=== PATIENT | female | born 1950 | race Caucasian/White ===

== ENCOUNTER 2020-08-01 15:25 | Inpatient (IN) ==
[2020-08-01] MEDS ORDERED: SODIUM CHLORIDE 0.9% 500 ML IV STA (18:58)
[2020-08-01 20:03] LABS: Basophils % 0.6 % (0.0-0.8); Eosinophils % 0.2 % (0.00-10.9); Hematocrit 47.7 VOL% (35.7-47.0); Hemoglobin 15.7 GM/DL (12.0-16.0); Immature Granulocytes % 0.5 %; Immature Granulocytes Absolute 0.03 #; Lymphocytes # 2.3 10*3/uL (1.4-4.0); Lymphocytes % 35.2 % (21.3-54.2); Mean Corpuscular HGB Conc 32.9 GM/DL (32-36); Mean Corpuscular Volume 87.5 FL (87-102); Mean Platelet Volume 10.3 FL (9.6-12.0); Monocytes % 10.4 % (1.7-12.7); Neutrophils % 53.1 % (38.7-73.9); Platelet Count 171 T/CUMM (130-400); Red Blood Count 5.45 MC/CUMM (3.8-5.5); Red Cell Distribution Width 13.3 % (9.3-17.3); White Blood Count 6.6 T/CUMM (4-12)
[2020-08-01 20:34] LABS: Band Neutrophils 4 % (0-10); Hypochromasia Slight; Lymphocytes 31 % (20-55); Microcytosis Slight; Platelet Estimate Normal; Polychromasia Slight; Segmented Neutrophils 57 % (50-85); Total Cells Counted 100
[2020-08-01 21:02] LABS: Alanine Aminotransferase 1413 U/L (13-56); Albumin 2.8 G/DL (3.4-5.0); Alkaline Phosphatase 254 U/L (45-117); Aspartate Amino Transferase 2313 U/L (0-37); Blood Urea Nitrogen 17 MG/DL (7-18); Calcium 8.6 MG/DL (8.5-10.1); Carbon Dioxide 28 MMOL/L (21-32); Estimated Glom Filtration Rate 85 ML/MIN; Glucose 137 MG/DL (74-106); Osmolality,Calculated 267.5 MOS/KG (273-304); Potassium 3.6 MMOL/L (3.5-5.1); Sodium 132 MMOL/L (136-145); Thyroid Stimulating Hormone 0.375 uIU/ml (0.358-3.74); Total Protein 7.2 G/DL (6.4-8.2)
[2020-08-01 21:35] LABS: Bilirubin,Urine Negative (Negative); Blood, Urine Negative (Negative); Glucose,Urine (UA) Negative (Negative); Ketones,Urine 20 mg/dL (Negative); Mucus,Urine Many /LPF (Occasional); Nitrite,Urine Negative (Negative); Protein,Urine 30 MG/DL; RBC,Urine 2 /HPF (0-4); Squamous Epithelial Cell,Urine Occasional /HPF (0-10); Urine Appearance CLEAR (Clear); Urine Color Amber (Yellow)
[2020-08-01 21:58] LABS: Barbiturates Screen,Urine Negative (Negative); Benzodiazepines Screen,Urine Negative (Negative); Cannabinoid Screen,Urine Negative (Negative); Opiate Screen,Urine Negative (Negative); Phencyclidine Screen,Urine Negative (Negative)
[2020-08-01 22:14] LABS: Hepatitis B Core IgM Quant 0.05 Index; Hepatitis B Surface Ag Quant < 0.10 Index; Hepatitis B Surface Ag Result Non-Reactive (NonReactive); Hepatitis C Virus Ab Quant 0.08 Index; Hepatitis C Virus Ab Result Non-Reactive (NonReactive)
[2020-08-01] MEDS ORDERED: DEXTROSE 50% 25 GM/50 ML VIAL IV PRN ×2 (22:54→22:59)
[2020-08-01] MEDS ORDERED: GLUCAGON 1 MG VIAL IM PRN ×2 (22:54→22:59)
[2020-08-01] MEDS ORDERED: diphenhydrAMINE CAP 25 MG CAPSULE PO PRN (22:59)
[2020-08-01] MEDS ORDERED: ZALEPLON 5 MG CAPSULE PO PRN (22:59)
[2020-08-01] MEDS ORDERED: NICOTINE 21 MG/24 HR PATCH TRANSDERM PRN (22:59)
[2020-08-01] MEDS ORDERED: hydrALAZINE 20 MG/1 ML VIAL IV PRN (22:59)
[2020-08-01] MEDS ORDERED: MORPHINE 4 MG/1 ML VIAL IV PRN (22:59)
[2020-08-02] MEDS: SODIUM CHLORIDE 0.9% 1,000 ML IV SCH ×3 (00:22→17:02)
[2020-08-02] MEDS: ALBUTEROL/IPRATROPIUM 3 ML NEB RESP TX SCH ×5 (00:38→20:54)
[2020-08-02 05:08] LABS: Basophils % 0.7 % (0.0-0.8); Eosinophils % 0.4 % (0.00-10.9); Hematocrit 42.2 VOL% (35.7-47.0); Hemoglobin 14.1 GM/DL (12.0-16.0); Immature Granulocytes % 0.5 %; Immature Granulocytes Absolute 0.03 #; Lymphocytes # 1.9 10*3/uL (1.4-4.0); Lymphocytes % 33.9 % (21.3-54.2); Mean Corpuscular HGB Conc 33.4 GM/DL (32-36); Mean Corpuscular Volume 85.9 FL (87-102); Mean Platelet Volume 10.8 FL (9.6-12.0); Monocytes % 12.4 % (1.7-12.7); Neutrophils % 52.1 % (38.7-73.9); Platelet Count 159 T/CUMM (130-400); Red Blood Count 4.91 MC/CUMM (3.8-5.5); Red Cell Distribution Width 13.3 % (9.3-17.3); White Blood Count 5.6 T/CUMM (4-12)
[2020-08-02 05:49] LABS: Albumin 2.5 G/DL (3.4-5.0); Bilirubin,Total 1.4 MG/DL (0.2-1.0); Calcium 8.2 MG/DL (8.5-10.1); Osmolality,Calculated 269.4 MOS/KG (273-304); Potassium 3.4 MMOL/L (3.5-5.1); Total Protein 6.2 G/DL (6.4-8.2)
[2020-08-02 06:05] LABS: Burr Cells Few; Platelet Estimate Normal
[2020-08-02] MEDS: ENOXAPARIN 40 MG/0.4 ML SYRINGE SUBCUT SCH (08:44)
[2020-08-02] MEDS: PANTOPRAZOLE 40 MG TABLET PO SCH (08:44)
[2020-08-02] MEDS: INSULIN LISPRO 100 UNIT/ML SUBCUT SCH ×4 (08:49→21:16)
[2020-08-02] MEDS ORDERED: POTASSIUM CHLORIDE 20 MEQ TABLET PO ONE (13:30)
[2020-08-02] MEDS: ONDANSETRON 4 MG/2 ML VIAL IV PRN (14:06)
[2020-08-03 06:06] LABS: Basophils % 0.5 % (0.0-0.8); Eosinophils % 0.7 % (0.00-10.9); Hematocrit 39.7 VOL% (35.7-47.0); Immature Granulocytes % 0.5 %; Immature Granulocytes Absolute 0.03 #; Lymphocytes # 1.9 10*3/uL (1.4-4.0); Lymphocytes % 33.7 % (21.3-54.2); Mean Corpuscular HGB Conc 32.7 GM/DL (32-36); Mean Corpuscular Volume 87.8 FL (87-102); Mean Platelet Volume 10.7 FL (9.6-12.0); Monocytes % 11.1 % (1.7-12.7); Neutrophils % 53.5 % (38.7-73.9); Platelet Count 177 T/CUMM (130-400); Red Blood Count 4.52 MC/CUMM (3.8-5.5); Red Cell Distribution Width 13.7 % (9.3-17.3); White Blood Count 5.7 T/CUMM (4-12)
[2020-08-03 06:30] LABS: Hypochromasia Slight; Microcytosis Slight; Platelet Estimate Adequate
[2020-08-03] MEDS: ALBUTEROL/IPRATROPIUM 3 ML NEB RESP TX SCH ×3 (06:33→15:28)
[2020-08-03 06:40] LABS: Albumin 2.2 G/DL (3.4-5.0); Bilirubin,Total 2.6 MG/DL (0.2-1.0); Calcium 7.5 MG/DL (8.5-10.1); Osmolality,Calculated 267.1 MOS/KG (273-304); Potassium 3.8 MMOL/L (3.5-5.1); Total Protein 5.8 G/DL (6.4-8.2)
[2020-08-03] MEDS: PANTOPRAZOLE 40 MG TABLET PO SCH (08:49)
[2020-08-03] MEDS: ENOXAPARIN 40 MG/0.4 ML SYRINGE SUBCUT SCH (08:50)
[2020-08-03] MEDS: INSULIN LISPRO 100 UNIT/ML SUBCUT SCH ×4 (08:54→20:58)
[2020-08-03] MEDS: ONDANSETRON 4 MG/2 ML VIAL IV PRN ×2 (14:35→21:02)
[2020-08-03] MEDS: SODIUM CHLORIDE 0.9% 1,000 ML IV SCH ×2 (14:35→15:11)
[2020-08-03] MEDS: guaiFENesin/DM ER 600-30 MG TABLET PO PRN (21:07)
[2020-08-04] MEDS: SODIUM CHLORIDE 0.9% 1,000 ML IV SCH ×3 (02:39→16:21)
[2020-08-04 06:09] LABS: Basophils % 0.3 % (0.0-0.8); Eosinophils % 0.6 % (0.00-10.9); Hematocrit 39.1 VOL% (35.7-47.0); INR 1.5; Immature Granulocytes % 0.3 %; Immature Granulocytes Absolute 0.02 #; Lymphocytes # 2.2 10*3/uL (1.4-4.0); Lymphocytes % 34.8 % (21.3-54.2); Mean Corpuscular HGB Conc 33.2 GM/DL (32-36); Mean Corpuscular Volume 86.9 FL (87-102); Mean Platelet Volume 10.7 FL (9.6-12.0); Monocytes % 10.8 % (1.7-12.7); Neutrophils % 53.2 % (38.7-73.9); PT Patient Result 16.6 SECS (10.5-12.0); Platelet Count 197 T/CUMM (130-400); Red Cell Distribution Width 13.9 % (9.3-17.3); White Blood Count 6.4 T/CUMM (4-12)
[2020-08-04] MEDS: ALBUTEROL/IPRATROPIUM 3 ML NEB RESP TX SCH ×5 (06:34→20:16)
[2020-08-04 06:35] LABS: Albumin 2.1 G/DL (3.4-5.0); Bilirubin,Total 3.8 MG/DL (0.2-1.0); Calcium 7.4 MG/DL (8.5-10.1); Osmolality,Calculated 268.8 MOS/KG (273-304); Potassium 3.9 MMOL/L (3.5-5.1); Total Protein 5.7 G/DL (6.4-8.2)
[2020-08-04 06:42] LABS: Platelet Estimate Adequate
[2020-08-04] MEDS: INSULIN LISPRO 100 UNIT/ML SUBCUT SCH ×3 (07:26→16:05)
[2020-08-04] MEDS: ONDANSETRON 4 MG/2 ML VIAL IV PRN ×3 (09:07→21:54)
[2020-08-04] MEDS: PANTOPRAZOLE 40 MG TABLET PO SCH (09:10)
[2020-08-04] MEDS: ENOXAPARIN 40 MG/0.4 ML SYRINGE SUBCUT SCH (09:11)
[2020-08-04] MEDS: ESCITALOPRAM 10 MG TABLET PO SCH (13:31)
[2020-08-04] MEDS: lisinopriL 20 MG TABLET PO SCH (13:32)
[2020-08-04] MEDS: guaiFENesin/DM ER 600-30 MG TABLET PO PRN (18:36)
[2020-08-05] MEDS: ALBUTEROL/IPRATROPIUM 3 ML NEB RESP TX SCH ×2 (01:00→07:02)
[2020-08-05] MEDS: INSULIN LISPRO 100 UNIT/ML SUBCUT SCH ×2 (02:18→08:28)
[2020-08-05] MEDS: SODIUM CHLORIDE 0.9% 1,000 ML IV SCH ×2 (02:19→09:01)
[2020-08-05 05:12] LABS: Basophils # 0.1 10*3/uL (0.0-0.2); Basophils % 0.7 % (0.0-0.8); Eosinophils % 0.4 % (0.00-10.9); Hematocrit 37.8 VOL% (35.7-47.0); Immature Granulocytes % 0.4 %; Immature Granulocytes Absolute 0.03 #; Lymphocytes # 2.8 10*3/uL (1.4-4.0); Lymphocytes % 36.4 % (21.3-54.2); Mean Corpuscular HGB Conc 34.4 GM/DL (32-36); Mean Corpuscular Volume 85.1 FL (87-102); Mean Platelet Volume 10.5 FL (9.6-12.0); Monocytes % 9.1 % (1.7-12.7); Platelet Count 204 T/CUMM (130-400); Red Blood Count 4.44 MC/CUMM (3.8-5.5); Red Cell Distribution Width 14.2 % (9.3-17.3); White Blood Count 7.6 T/CUMM (4-12)
[2020-08-05 05:19] LABS: INR 1.6; PT Patient Result 17.6 SECS (10.5-12.0)
[2020-08-05 05:42] LABS: Eosinophils 2 % (0-10); Lymphocytes 24 % (20-55); Platelet Estimate Adequate; Segmented Neutrophils 66 % (50-85); Total Cells Counted 100
[2020-08-05 05:55] LABS: Albumin 1.9 G/DL (3.4-5.0); Osmolality,Calculated 270.7 MOS/KG (273-304); Potassium 3.3 MMOL/L (3.5-5.1); Total Protein 5.3 G/DL (6.4-8.2)
[2020-08-05] MEDS ORDERED: POTASSIUM CHLORIDE RIDER 10 MEQ/100 ML PREMIX IV PRN (06:05)
[2020-08-05] MEDS ORDERED: LEVOTHYROXINE 175 MCG TABLET PO SCH (06:30)
[2020-08-05] MEDS: ENOXAPARIN 40 MG/0.4 ML SYRINGE SUBCUT SCH (08:36)
[2020-08-05] MEDS: PANTOPRAZOLE 40 MG TABLET PO SCH (08:36)
[2020-08-05] MEDS: lisinopriL 20 MG TABLET PO SCH (08:36)
[2020-08-05] MEDS: ESCITALOPRAM 10 MG TABLET PO SCH (08:36)
[2020-08-05] MEDS ORDERED: FUROSEMIDE 40 MG/4 ML VIAL IV ONE (09:00)
[2020-08-05 11:32] VITALS: BP 122/48
== END 2020-08-05 12:10 | disposition home or self-care (01) | DRG 442 ==
LOC: N.ED 15:25 → INTOOBSV 22:54 → N.EDINP 22:54 → N.3E 08-02 00:53
PROVIDERS: ADMIT Internal Medicine; ATTEND Internal Medicine